=== PATIENT | female | born 1980 | race Caucasian/White ===

== ENCOUNTER 2017-05-06 20:50 | Emergency (ER) | payer OTHER ==
[2017-05-06 21:00] VITALS: BP 137/40; PULSE 72; TEMP 98.3; BMI 18.0
--- NOTE | 2017-05-06 21:50 | PDOC ---
History of Present Illness - General Chief Complaint: Pain Stated Complaint: PAIN Time Seen by Provider: 05/06/17 21:50 - History of Present Illness Initial Comments: 36 year old year old healthy female presenting with abdominal pain and occasional nausea for the past 4 months. She describes the pain as an achy 5-6/ 10 pain that is sometimes better with bowel movements and eating. She has not tried any over the counter medication and was recently prescribed dicyclomine for suspected IBS by her clinic physician. She states that after she tried a dose of the dicyclomine she had some diarrhea and worsening abdominal pain. Of note, there is no blood in her bowel movements and they are typically formed. She does admit to more stress recently given her young at home. She does not experience this pain when she is sleeping and it never wakes her up out of her sleep. Denies fevers, chills, vomiting, cough, chest pain, headache, or other symptoms. 05/06/17 22:39 Past History - Past Medical History Allergies/Adverse Reactions: Allergies Allergy/AdvReac Type Severity Reaction Status Date / Time No Known Allergies Allergy Verified 05/06/17 21:00 Home Medications: Ambulatory Orders Dicyclomine HCl [Bentyl -] 10 mg PO BID PRN 05/06/17 Famotidine [Pepcid] 40 mg PO DAILY #30 tablet 05/06/17 Asthma: No Cancer: No Cardiac Disorders: No Diabetes: No HTN: No Seizures: No Thyroid Disease: No - Psycho/Social/Smoking Cessation Hx Suicidal Ideation: No Smoking History: Never smoked Have you smoked in the past 12 months: No Information on smoking cessation initiated: No Hx Alcohol Use: No Drug/Substance Use Hx: No Hx Substance Use Treatment: No Review of Systems - Review of Systems Constitutional: No: Chills, Diaphoresis, Fever HEENTM: No: Eye Pain, Blurred Vision Respiratory: No: Cough, Orthopnea, Shortness of Breath Cardiac (ROS): No: Chest Pain, Edema ABD/GI: Yes: Constipated, Diarrhea, Nausea. No: Poor Appetite, Vomiting : No: Burning, Dysuria, Discharge Musculoskeletal: No: Back Pain Integumentary: No: Bruising, Change in Color Neurological: No: Headache, Numbness, Weakness *Physical Exam - Vital Signs Last Vital Signs Temp Pulse Resp BP Pulse Ox 98.3 F 72 18 137/40 98 05/06/17 20:56 05/06/17 20:56 05/06/17 20:56 05/06/17 20:56 05/06/17 20:56 - Physical Exam General Appearance: Yes: Nourished, Appropriately Dressed. No: Apparent Distress HEENT: positive: EOMI, JOSÉ MIGUEL, Normal ENT Inspection, Normal Voice Neck: positive: Trachea midline, Normal Thyroid, Supple. negative: Tender, Rigid Respiratory/Chest: positive: Lungs Clear, Normal Breath Sounds. negative: Chest Tender, Respiratory Distress, Accessory Muscle Use Cardiovascular: positive: Regular Rhythm, Regular Rate, S1, S2. negative: Edema , Murmur Gastrointestinal/Abdominal: positive: Normal Bowel Sounds, Flat, Soft. negative : Tender, Organomegaly Musculoskeletal: positive: Normal Inspection Integumentary: positive: Normal Color, Dry, Warm Neurologic: positive: Fully Oriented, Alert, Normal Mood/Affect ED Treatment Course - LABORATORY CBC & Chemistry Diagram: 05/06/17 22:39 05/06/17 22:39 Medical Decision Making - Medical Decision Making 36 year old female with abdominal pain and occasional nausea for the past 4 months. Unclear etiology for this abdominal pain as her abdominal exam does not uyield tenderness in any area and her pain does not wake her up out of her bed. This along with the improvement with food and bowel movements with some consistency points most strongly to IBS. She has tried dicylomine without initial relief but this is probably the best medication for her. Will send basic abdominal workup labs and try Maalox, pepcid, and viscous lidocaine for relief. 05/06/17 23:04 05/07/17 00:08 Symptoms improved with Maalox, viscous lidocaine, and Pepcid. Labs returned significant for elevated lipase to 800, t-bili 1.3, and some leuk esterase in her urine. Patient was discharged with GI follow up with Dr. Galicia. *DC/Admit/Observation/Transfer Diagnosis at time of Disposition: Abdominal pain Qualifiers: Abdominal location: unspecified location Qualified Code(s): R10.9 - Unspecified abdominal pain - Discharge Dispostion Disposition: HOME - Prescriptions Prescriptions: Famotidine [Pepcid] 40 mg PO DAILY #30 tablet - Referrals Referrals: Brigido Galicia MD [Staff Physician] - Kylie Garza MD [Primary Care Provider] - - Patient Instructions Printed Discharge Instructions: DI for Abdominal Pain-Adult Additional Instructions: avoid greasy spicy food. Avoid excessive coffee or alcohol. Take medication as directed. Print Language: TURKMEN - Attestations Physician Attestion: I, Dr. Alexandrea Gonzáles, attest that this document has been prepared under my direction and personally reviewed by me in its entirety. I further attest, that it accurately reflects all work, treatment, procedures and medical decision -making performed by me. 05/07/17 00:12
[2017-05-06] MEDS ORDERED: FAMOTIDINE 20 MG/50 ML IVPB 50 ML IVPB ONE ×2 (22:26→22:51)
[2017-05-06] MEDS ORDERED: MAG HYDROX/AL HYDROX/SIMETH 30 ML UNIT-DOSE CUP PO ONE (22:26)
[2017-05-06] MEDS ORDERED: LIDOCAINE VISCOUS 2% ORAL/TOP 20 ML UNIT-DOSE CUP MM ONE (22:27)
--- NOTE | 2017-05-06 22:32 | PDOC ---
Attending Attestation - Resident Resident Name: Alexandrea Gonzáles - ED Attending Attestation I have performed the following: I have examined & evaluated the patient, The case was reviewed & discussed with the resident, I agree w/resident's findings & plan, Exceptions are as noted - Physicial Exam PE: 05/06/17 23:42 *Physical Exam General Appearance: Yes: Appropriately Dressed. No: Apparent Distress, Intoxicated HEENT: positive: EOMI, JOSÉ MIGUEL, Normal ENT Inspection, Normal Voice, TMs Normal, Pharynx Normal. negative: Pale Conjunctivae, Photophobia, Scleral Icterus (R), Scleral Icterus (L) Neck: positive: Trachea midline, Normal Thyroid, Supple. negative: Tender, Rigid, Carotid bruit, Stridor, Lymphadenopathy (R), Lymphadenopathy (L), Thyromegaly Respiratory/Chest: positive: Lungs Clear, Normal Breath Sounds. negative: Chest Tender, Respiratory Distress, Accessory Muscle Use, Labored Respiration, RES, Crackles, Rales, Rhonchi, Stridor, Wheezing, Dullness Cardiovascular: positive: Regular Rhythm, Regular Rate, S1, S2. negative: Edema , JVD, Murmur, Bradycardia, Tachycardia Vascular Pulses: Dorsalis-Pedis (R): 2+, Doralis-Pedis (L): 2+ Gastrointestinal/Abdominal: positive: Normal Bowel Sounds, Flat, Soft. negative : Tender, Organomegaly, Pulsatile Mass, Increased Bowel Sounds, Decreased BS, Distended, Guarding, Rebound, Hernia, Hepatomegaly, Spleenomegaly Lymphatic: negative: Adenopathy, Tenderness Musculoskeletal: positive: Normal Inspection. negative: CVA Tenderness, Decreased Range of Motion Extremity: positive: Normal Capillary Refill, Normal Inspection, Normal Range of Motion, Pelvis Stable. negative: Tender, Pedal Edema, Swelling, Erythema Integumentary: positive: Normal Color, Dry, Warm. negative: Cyanotic, Erythema , Jaundice, Rash Neurologic: positive: front end assistant II-XII NML intact, Fully Oriented, Alert, Normal Mood/ Affect, Motor Strength 5/5. negative: EOM Palsy, Facial Droop, Sensory Deficit - Medical Decision Making 05/06/17 23:42 labs stable. Pt feels better. Pt will be discharged. Discharge Disposition - Diagnosis Abdominal pain Qualifiers: Abdominal location: unspecified location Qualified Code(s): R10.9 - Unspecified abdominal pain - Discharge Dispostion Disposition: HOME Condition at time of disposition: Stable Last Admission D/C Date: 09/10/15 Admit: No - Prescriptions Prescriptions: Famotidine [Pepcid] 40 mg PO DAILY #30 tablet - Referrals Referrals: Kylie Garza MD [Primary Care Provider] - Brigido Galicia MD [Staff Physician] - - Patient Instructions Printed Discharge Instructions: DI for Abdominal Pain-Adult Additional Instructions: avoid greasy spicy food. Avoid excessive coffee or alcohol. Take medication as directed. Print Language: GUINEAN
[2017-05-06] MEDS ORDERED: MAG HYDROX/AL HYDROX/SIMETH 30 ML UNIT-DOSE CUP ONE (22:51)
[2017-05-06 23:02] LABS: BASOPHIL 0.7 % (0-2.0); EOSINOPHIL 1.8 % (0-4.5); MCH 29.5 pg (25.7-33.7); MCHC 34.5 g/dl (32.0-36.0); MEAN CELL VOLUME 85.4 fl (80-96); MEAN PLT VOLUME 9.3 fl (7.5-11.1); NEUTROPHILS 55.9 % (42.8-82.8); PLATELET COUNT 168 K/MM3 (134-434); WHITE BLOOD COUNT 5.6 K/mm3 (4.0-10.0)
[2017-05-06 23:03] LABS: URINE APPEARANCE SLCLOUDY; URINE BILIRUBIN NEGATIVE (NEGATIVE); URINE BLOOD 3+ (NEGATIVE); URINE COLOR STRAW; URINE GLUCOSE (UA) NEGATIVE (NEGATIVE); URINE KETONE 1+ (NEGATIVE); URINE NITRITE NEGATIVE (NEGATIVE); URINE PROTEIN NEGATIVE (NEGATIVE); URINE UROBILINOGEN NEGATIVE mg/dL (0.2-1.0)
[2017-05-06 23:16] LABS: URINE LEUK ESTERASE 3+ (NEGATIVE)
[2017-05-06 23:21] LABS: ALBUMIN 4.2 g/dl (3.4-5.0); ALK PHOS 50 U/L (45-117); ANION GAP 7 (8-16); BILIRUBIN,TOTAL 1.3 mg/dL (0.2-1.0); CALCIUM 8.8 mg/dL (8.5-10.1); CO2 26 mmol/L (21-32); CREATININE 0.7 mg/dL (0.55-1.02); GLUCOSE,RANDOM 96 mg/dL (74-106); SGOT/AST 13 U/L (15-37); SGPT/ALT 16 U/L (12-78); TOT PROT 6.7 g/dl (6.4-8.2)
[2017-05-06 23:33] LABS: CALCIUM OXALATE CRYSTALS RARE /hpf (NONE SEEN); URINE BACTERIA FEW /hpf (NONE SEEN); URINE MUCUS RARE; URINE RBC 2 /hpf (0-3); URINE WBC 16 /hpf (3-5)
== END 2017-05-06 23:56 | disposition home or self-care (01) ==
LOC: JER 20:50
PROC: 3E033GC Introduction of Other Therapeutic Substance into Peripheral Vein, Percutaneous Approach (ICD-10-PCS; principal; 2017-05-06)
DX: R10.9 Unspecified abdominal pain (principal)
CPT/HCPCS: 36415; 80053; 81003; 81015; 83690; 84703; 85025; 99282-25

== ENCOUNTER 2019-05-09 08:36 | Emergency (ER) | payer OTHER ==
[2019-05-09 08:47] VITALS: BMI 16.8
[2019-05-09] MEDS ORDERED: FAMOTIDINE 20 MG/50 ML IVPB 20 MG/50 ML MG IVPB ONE ×2 (09:24→09:34)
[2019-05-09] MEDS ORDERED: SODIUM CHLORIDE 1,000 ML IV STA (09:24)
[2019-05-09] MEDS ORDERED: SUCRALFATE 1 GM/10 ML UNIT DOSE CUPS PO ONE (09:24)
[2019-05-09] MEDS ORDERED: SUCRALFATE 1 GM TABLET (FP) ONE (09:33)
--- NOTE | 2019-05-09 10:05 | PDOC ---
History of Present Illness <Misti Henao - Last Filed: 05/09/19 10:21> - General History Source: Patient - History of Present Illness Timing/Duration: reports: constant Abdominal Pain Onset Location: reports: epigastric Pain Radiation: reports: no radiation <Prasanna Snowden - Last Filed: 05/09/19 11:02> - General Chief Complaint: Pain Stated Complaint: ABD. PAIN Time Seen by Provider: 05/09/19 09:17 Past History <Misti Henao - Last Filed: 05/09/19 10:21> - Past Medical History Asthma: No Cancer: No Cardiac Disorders: No COPD: No Diabetes: No HTN: No Seizures: No Thyroid Disease: No - Immunization History Immunization Up to Date: Yes - Suicide/Smoking/Psychosocial Hx Smoking History: Never smoked Have you smoked in the past 12 months: No Hx Alcohol Use: No Drug/Substance Use Hx: No Substance Use Type: None Hx Substance Use Treatment: No <Prasanna Snowden - Last Filed: 05/09/19 11:02> - Past Medical History Allergies/Adverse Reactions: Allergies Allergy/AdvReac Type Severity Reaction Status Date / Time No Known Allergies Allergy Verified 08/13/17 09:18 Home Medications: Ambulatory Orders Famotidine [Pepcid] 20 mg PO BID #28 tablet 05/09/19 Famotidine [Pepcid] 20 mg PO BID #28 tablet 05/09/19 Pantoprazole Sodium 40 mg PO DAILY 05/09/19 Review of Systems - Review of Systems Constitutional: No: Chills, Fever <Prasanna Snowden - Last Filed: 05/09/19 11:02> *Physical Exam - Vital Signs Last Vital Signs Temp Pulse Resp BP Pulse Ox 98 F 62 18 93/53 L 99 05/09/19 08:45 05/09/19 08:45 05/09/19 08:45 05/09/19 08:45 05/09/19 08:45 <Misti Henaoifeanyicoy - Last Filed: 05/09/19 10:21> - Vital Signs Last Vital Signs Temp Pulse Resp BP Pulse Ox 98 F 62 18 93/53 L 99 05/09/19 08:45 05/09/19 08:45 05/09/19 08:45 05/09/19 08:45 05/09/19 08:45 <Prasanna Snowden - Last Filed: 05/09/19 11:02> ED Treatment Course - Medications Given in the ED: ED Medications Discontinued Medications Generic Name Dose Route Start Last Admin Trade Name Freq PRN Reason Stop Dose Admin Famotidine/Sodium Chloride 20 mg in 50 mls @ 100 mls/hr 05/09/19 09:24 09:41 Pepcid 20 Mg Premixed Ivpb - IVPB 05/09/19 09:53 100 mls/hr ONCE ONE Administration Sucralfate 1 gm 05/09/19 09:24 05/09/19 09:41 Carafate Oral Suspension - PO 05/09/19 09:25 1 gm ONCE ONE Administration <Misti Henao - Last Filed: 05/09/19 10:21> - Medications Given in the ED: ED Medications Discontinued Medications Generic Name Dose Route Start Last Admin Trade Name Freq PRN Reason Stop Dose Admin Famotidine/Sodium Chloride 20 mg in 50 mls @ 100 mls/hr 05/09/19 09:24 09:41 Pepcid 20 Mg Premixed Ivpb - IVPB 05/09/19 09:53 100 mls/hr ONCE ONE Administration Sucralfate 1 gm 05/09/19 09:24 05/09/19 09:41 Carafate Oral Suspension - PO 05/09/19 09:25 1 gm ONCE ONE Administration <Prasanna Snowden - Last Filed: 05/09/19 11:02> Medical Decision Making - Medical Decision Making The patient was seen and evaluated in conjunction with midlevel provider under my direct supervision, ancillary studies were reviewed. I agree with the plan as outlined KISHA Snowden. HPI, workup/dispo as outlined. VS reviewed, wnl. anticipate discharge, pcp followup, return precautions 05/09/19 10:21 <Misti Henao - Last Filed: 05/09/19 10:21> - Medical Decision Making 05/09/19 09:59 38 yo F, endorses h/o gastritis, s/p EGD a month ago, which showed "inflammation " per patient, takes omeprazole daily and follows up with GI in [place], here with her usual epigastric pain. Patient states though she takes her medication every day, she continues to have epigastric pain that worsens after po intake. Also reports nausea. No vomiting, change in bowel movements, melena, bright red blood per rectum, fever or chills. see exam Gastritis flare "inflammation" on EGD 1 month ago Stable w/ minimal ttp to epigatsrium on exam today -GI cocktail -reassess -anticipate dc w/ GI f/u 05/09/19 10:05 05/09/19 10:45 Pt reports significant improvement with meds and feels well enough to be discharged. No significant tenderness to epigastrium on repeat exam. Rpt BP low but pt reports running low at baseline and reports no dizziness/weakness at this time. Prior BP readings have been similar on chat review. Will dc with prescription for Pepcid and have patient follow up with her copy manager this week <Prasanna Snowden - Last Filed: 05/09/19 11:02> *DC/Admit/Observation/Transfer <Misti Henao - Last Filed: 05/09/19 10:21> <Prasanna Snowden - Last Filed: 05/09/19 11:02> Diagnosis at time of Disposition: Epigastric abdominal pain - Discharge Dispostion Disposition: HOME Condition at time of disposition: Improved - Prescriptions Prescriptions: Famotidine [Pepcid] 20 mg PO BID #28 tablet Famotidine [Pepcid] 20 mg PO BID #28 tablet - Patient Instructions Printed Discharge Instructions: Gastritis Additional Instructions: Take pepcid as directed and follow up with your GI
[2019-05-09 11:25] VITALS: BP 99/72; PULSE 78; TEMP 98.7
== END 2019-05-09 10:55 | disposition home or self-care (01) ==
LOC: JER 08:36
PROC: 3E033GC Introduction of Other Therapeutic Substance into Peripheral Vein, Percutaneous Approach (ICD-10-PCS; principal; 2019-05-09)
PROC: 3E0337Z Introduction of Electrolytic and Water Balance Substance into Peripheral Vein, Percutaneous Approach (ICD-10-PCS; 2019-05-09)
DX: R10.13 Epigastric pain (principal)
CPT/HCPCS: 96361; 96365; 99282-25; J7030

== ENCOUNTER 2023-02-17 08:45 | Emergency (ER) | payer OTHER ==
[2023-02-17 08:56] VITALS: BMI 16.6
[2023-02-17] MEDS ORDERED: SODIUM CHLORIDE 1,000 ML IV STA (10:01)
[2023-02-17] MEDS ORDERED: ACETAMINOPHEN 1000 MG/100 ML BAG IVPB ONE (10:01)
[2023-02-17] MEDS ORDERED: MAGNESIUM SULF 50% (8.12 MEQ/2 ML-1 GM VIAL) IVPB ONE (10:02)
[2023-02-17] MEDS ORDERED: ACETAMINOPHEN INJECTION 100 ML IVPB ONE (10:12)
[2023-02-17] MEDS ORDERED: MAGNESIUM SULFATE IN WATER 2 GM/50 ML IVPB IVPB ONE (10:12)
[2023-02-17 10:52] LABS: BASO % 0.9 % (0-2.0); EOS % 1.8 % (0-4.5); HEMATOCRIT 36.1 % (32.4-45.2); HEMOGLOBIN 12.5 GM/dL (10.7-15.3); LYMPH % 21.4 % (8-40); MCH 29.1 pg (25.7-33.7); MCHC 34.7 g/dl (32.0-36.0); MEAN PLT VOLUME 9.2 fl (7.5-11.1); MONO % 13.5 % (3.8-10.2); NEUT % 62.4 % (42.8-82.8); PLATELET COUNT 145 10^3/uL (134-434); RBC 4.31 M/mm3 (3.60-5.2); WHITE BLOOD COUNT 4.8 K/mm3 (4.0-10.0)
[2023-02-17 11:24] LABS: CALCIUM 8.7 mg/dL (8.5-10.1)
[2023-02-17 11:25] LABS: ALBUMIN 3.9 g/dl (3.4-5.0)
[2023-02-17 11:27] LABS: CREATININE 0.7 mg/dL (0.55-1.3)
[2023-02-17 11:29] LABS: BILIRUBIN,TOTAL 1.8 mg/dL (0.2-1); TOT PROT 7.1 g/dl (6.4-8.2)
[2023-02-17] MEDS ORDERED: KETOROLAC TROMETHAMINE 30 MG/1 ML VIAL IM ONE (11:51)
[2023-02-17] MEDS ORDERED: KETOROLAC TROMETHAMINE 30 MG/1 ML VIAL ONE (11:53)
[2023-02-17 16:31] VITALS: BP 98/52; PULSE 88; RESP 18; TEMP 98.7
== END 2023-02-17 12:15 | disposition home or self-care (01) ==
LOC: JER 08:45
PROC: 3E033NZ Introduction of Analgesics, Hypnotics, Sedatives into Peripheral Vein, Percutaneous Approach (ICD-10-PCS; principal; 2023-02-17)
PROC: 3E033GC Introduction of Other Therapeutic Substance into Peripheral Vein, Percutaneous Approach (ICD-10-PCS; 2023-02-17)
PROC: 3E033GC Introduction of Other Therapeutic Substance into Peripheral Vein, Percutaneous Approach (ICD-10-PCS; 2023-02-17)
PROC: 3E0337Z Introduction of Electrolytic and Water Balance Substance into Peripheral Vein, Percutaneous Approach (ICD-10-PCS; 2023-02-17)
DX: R51.9 Headache, unspecified (principal); R50.9 Fever, unspecified; J01.90 Acute sinusitis, unspecified; Z20.822 Contact with and (suspected) exposure to COVID-19
CPT/HCPCS: 0241U-QW; 36415; 80053; 84703; 85025; 99284-25